=== PATIENT | male | born 1970 | race African-American/Black ===

== ENCOUNTER 2018-04-09 15:49 | Inpatient (IN) | payer OTHER ==
[~2018-04-09] VITALS: Ht 180.3 cm; Wt 106.6 kg
[2018-04-09] MEDS ORDERED: ENOXAPARIN SODIUM 30 MG/0.3 ML DISP.SYRIN SUBCUT ONE (16:00)
[2018-04-09] MEDS ORDERED: WARF7.5T23 PO (16:06)
[2018-04-09 16:44] LABS: BASOPHILS # (AUTO) 0.1 K/uL (0.0-8.0); BASOPHILS % (AUTO) 0.8 % (0.0-2.0); EOSINOPHILS # (AUTO) 0.2 K/uL (0.0-0.7); EOSINOPHILS % (AUTO) 2.1 % (0.0-7.0); HEMATOCRIT 35.9 % (36.7-47.1); HEMOGLOBIN 12.2 g/dL (12.5-16.3); LYMPHOCYTES # (AUTO) 1.4 K/uL (20.0-40.0); LYMPHOCYTES % (AUTO) 19.7 % (20.5-51.5); MEAN CORPUSCULAR HEMOGLOBIN 26.1 uug (23.8-33.4); MEAN CORPUSCULAR HGB CONC 34 g/dL (32.5-36.3); MEAN CORPUSCULAR VOLUME 76.6 fL (73.0-96.2); MONOCYTES # (AUTO) 0.7 K/uL (2.0-10.0); MONOCYTES % (AUTO) 9.7 % (0.0-11.0); NEUTROPHILS % (AUTO) 67.7 % (38.5-71.5); PLATELET COUNT (AUTO) 234 K/uL (152-348); RED BLOOD CELL COUNT(AUTO) 4.68 MIL/uL (4.06-5.63); WHITE BLOOD COUNT (AUTO) 7.4 K/uL (3.6-10.2)
[2018-04-09 16:53] LABS: CREATININE 1.1 mg/dL (0.6-1.3); POTASSIUM 3.8 mmol/L (3.5-5.1)
[2018-04-09] MEDS ORDERED: WARFARIN SODIUM 5 MG TABLET PO ONE (17:15)
--- NOTE | 2018-04-09 17:20 | NUR ---
Per pt is amitted to tele, SBAR report given to AMAURI Escobedo via telephone. Pt resting in [facility] with no s/s of acute distress noted at this time.
--- NOTE | 2018-04-09 17:37 | NUR ---
Pt trans to to tele floor, NAD noted.
[2018-04-09 18:00] VITALS: BP 127/62
--- NOTE | 2018-04-09 18:00 | NUR ---
NEW PATIENT FROM ER TO ROOM 221 VIA [place] ALERT ORTX4 COOPERATE WELL VS TAKEN STABLE NO SOB OR CHEST PAIN CALL LIGHT INSTRUCTION AND REMIND TO USE WHEN NEEDED
[2018-04-09] MEDS ORDERED: ONDANSETRON 4 MG/2 ML VIAL IV PRN (18:45)
[2018-04-09] MEDS ORDERED: ACETAMINOPHEN 325 MG TABLET PO PRN (18:45)
[2018-04-09] MEDS ORDERED: DOCUSATE SODIUM 100 MG CAPSULE PO PRN (18:45)
[2018-04-09] MEDS ORDERED: MORPHINE SULFATE 2 MG/1 ML DISP.SYRIN IV PRN (18:45)
--- NOTE | 2018-04-09 19:30 | NUR ---
RECEIVED SHIFT REPORT FROM AMAURI MCKEON. PT RESTING IN BED AT THIS TIME. C/O L C/P, NO SOB, N/V. VSS. PT REFUSES TO HAVE UPPER SIDERAILS IN PLACE. BED IN LOW AND LOCKED POSITION. CALL LIGHT WITHIN REACH. WILL MANAGE PAIN WITH ORDERED ANALGESICS.
[2018-04-09] MEDS ORDERED: HYDROCODONE/APAP 5-325MG TABLET PO PRN (19:45)
[2018-04-09 20:00] VITALS: BP 116/77
[2018-04-09] MEDS ORDERED: HYDROMORPHONE 1 MG/1 ML DISP.SYRIN IV PRN (21:00)
[2018-04-09] MEDS: HYDROMORPHONE 2 MG/1 ML DISP.SYRIN IV PRN (23:20)
--- NOTE | 2018-04-09 23:54 | NUR ---
PT REFUSES 0000 HOUR V/S CHECK. PT APPEARS TO BE IN NO APPARENT DISTRESS. BREATHING IS REGULAR AND UNLABORED. WILL CONTINUE TO MONITOR.
--- NOTE | 2018-04-10 01:35 | NUR ---
PT RESTING COMFORTABLY IN BED. NSR ON TELE MONITORING. WILL CONTINUE TO MONITOR.
[2018-04-10] MEDS: HYDROMORPHONE 2 MG/1 ML DISP.SYRIN IV PRN ×6 (03:21→23:43)
[2018-04-10 04:00] VITALS: BP 119/69
[2018-04-10 06:33] LABS: BASOPHILS % (AUTO) 0.9 % (0.0-2.0); EOSINOPHILS # (AUTO) 0.2 K/uL (0.0-0.7); EOSINOPHILS % (AUTO) 2.9 % (0.0-7.0); HEMATOCRIT 35.1 % (36.7-47.1); HEMOGLOBIN 11.8 g/dL (12.5-16.3); LYMPHOCYTES # (AUTO) 1.2 K/uL (20.0-40.0); MEAN CORPUSCULAR HEMOGLOBIN 25.9 uug (23.8-33.4); MEAN CORPUSCULAR HGB CONC 34 g/dL (32.5-36.3); MEAN CORPUSCULAR VOLUME 76.9 fL (73.0-96.2); MONOCYTES # (AUTO) 0.5 K/uL (2.0-10.0); MONOCYTES % (AUTO) 9.2 % (0.0-11.0); NEUTROPHILS # (AUTO) 3.7 K/uL (1.8-8.9); PLATELET COUNT (AUTO) 215 K/uL (152-348); RED BLOOD CELL COUNT(AUTO) 4.56 MIL/uL (4.06-5.63); WHITE BLOOD COUNT (AUTO) 5.6 K/uL (3.6-10.2)
[2018-04-10 06:44] LABS: CREATININE 1.1 mg/dL (0.6-1.3); MAGNESIUM 1.9 mg/dL (1.8-2.4)
[2018-04-10 07:01] LABS: THYROID STIMULATING HORMONE 2.002 mIU/mL (0.358-3.740)
--- NOTE | 2018-04-10 08:00 | NUR ---
AWAKE ALERT AND PLEASANT, CONTINUE CHEST PAIN OBSERVATION AND PAIN MANAGEMENT SR ON MONITOR.
[2018-04-10] MEDS: ASPIRIN 81 MG TAB.CHEW PO SCH (08:50)
[2018-04-10 11:12] VITALS: BP 137/84
--- NOTE | 2018-04-10 15:00 | NUR ---
SEEN BY HOSPITALIST WITH ORDERS, CONTINUE COUMADIN ORDERED TO MAINTAIN THERAPEUTIC LEVEL. SEE ORDER/MAR
[2018-04-10 15:14] VITALS: BP 128/73
--- NOTE | 2018-04-10 17:52 | NUR ---
RESTING COMFORTABLY IN BED , CONTINUE WITH PAIN MANAGEMENT FOR CHEST PAIN. SR ON MONITOR
[2018-04-10] MEDS ORDERED: WARFARIN SODIUM 7.5 MG TABLET PO SCH (18:00)
[2018-04-10 19:00] VITALS: BP 127/70
--- NOTE | 2018-04-10 19:29 | NUR ---
RECEIVED SHIFT REPORT FROM AMAURI MEJIAS. PT RESTING COMFORTABLY IN BED. PT C/O C/P, REQUESTING ANALGESICS. WILL ADMIN ANALGESIC ORDERED BY . PT DENIES SOB AND N/V. PT REFUSES TO HAVE BILATERAL UPPER SIDERAILS UP. PT IS OFF TELE, ON MED-SURG STATUS. WILL CONTINUE TO MONITOR.
--- NOTE | 2018-04-10 23:40 | NUR ---
PT C/O C/P 04/18. WILL MANAGE WITH PRESCRIBED ANALGESICS. PT REFUSES V/S CHECK. DOES NOT APPEAR TO BE SOB OR N/V. PT REFUSES SUPPLEMENTAL O2 TO HELP EASE C/P. WILL CONTINUE TO MONITOR.
--- NOTE | 2018-04-11 03:50 | NUR ---
PT UP AND WALKING AROUND ON UNIT FLOOR. PT SLEPT THROUGH THE NIGHT, BUT IS NOW AWAKE AND ASKING FOR PAIN MEDICATION. PT IS NOTED TO BE AGITATED IF PRN PAIN MEDICATION IS NOT ADMINISTERED RIGHT WHEN IT'S DUE.
[2018-04-11] MEDS: HYDROMORPHONE 2 MG/1 ML DISP.SYRIN IV PRN ×5 (03:58→20:02)
[2018-04-11 05:00] VITALS: BP 140/79
[2018-04-11 06:26] LABS: BASOPHILS % (AUTO) 0.4 % (0.0-2.0); EOSINOPHILS # (AUTO) 0.2 K/uL (0.0-0.7); HEMATOCRIT 36.4 % (36.7-47.1); HEMOGLOBIN 12.2 g/dL (12.5-16.3); LYMPHOCYTES # (AUTO) 1.1 K/uL (20.0-40.0); LYMPHOCYTES % (AUTO) 20.5 % (20.5-51.5); MEAN CORPUSCULAR HEMOGLOBIN 25.4 uug (23.8-33.4); MEAN CORPUSCULAR HGB CONC 34 g/dL (32.5-36.3); MEAN CORPUSCULAR VOLUME 75.9 fL (73.0-96.2); MONOCYTES # (AUTO) 0.6 K/uL (2.0-10.0); MONOCYTES % (AUTO) 10.4 % (0.0-11.0); NEUTROPHILS # (AUTO) 3.6 K/uL (1.8-8.9); NEUTROPHILS % (AUTO) 65.7 % (38.5-71.5); PLATELET COUNT (AUTO) 228 K/uL (152-348); WHITE BLOOD COUNT (AUTO) 5.4 K/uL (3.6-10.2)
[2018-04-11 06:30] LABS: MAGNESIUM 2.1 mg/dL (1.8-2.4); PHOSPHOROUS 4.3 mg/dL (2.5-4.9); POTASSIUM 4.7 mmol/L (3.5-5.1)
[2018-04-11 06:40] LABS: THYROID STIMULATING HORMONE 1.986 mIU/mL (0.358-3.740)
--- NOTE | 2018-04-11 07:00 | NUR ---
PATIENT RECEIVED ON BED, AWAKE, AAOX4. NO ACUTE DISTRESS NOTED. PORTACATH ON RIGHT UPPERCHEST INTACT AND PATENT. AMBULATORY, CONTINENT. NO COMPLAINTS OF PAIN/DISCOMFORT AT THIS TIME. COMFORT MEASURES PROVIDED. CALL LIGHT WITHIN REACH. WILL CONTINUE TO MONITOR CLOSELY.
[2018-04-11] MEDS: ASPIRIN 81 MG TAB.CHEW PO SCH (08:00)
[2018-04-11 11:46] VITALS: BP 128/72
[2018-04-11] MEDS: SOD FERRIC GLUC COMPLX/SUCROSE 125 MG in IV NORMAL SALINE 100 ML IV SCH (13:18)
[2018-04-11 15:19] VITALS: BP 120/67
[2018-04-11] MEDS ORDERED: WARFARIN SODIUM 5 MG TABLET PO ONE (18:00)
--- NOTE | 2018-04-11 18:15 | NUR ---
END OF SHIFT NOTES: PATIENT IN ROOM, ASLEEP. IN STABLE CONDITION. PORTACATH IN RIGHT UPPER CHEST STILL INTACT AND PATENT. PT 18.2 INR 1.75, COUMADIN GIVEN AT 1700 ORDERED. FERRITIN IV ADMINISTERED AT 1400 WELL TOLERATED. ALL NEEDS ATTENDED AND ANTICIPATED. CALL LIGHT WITHIN REACH. WILL CONTINUE TO MONITOR CLOSELY.
[2018-04-11 20:00] VITALS: BP 128/68
--- NOTE | 2018-04-11 22:50 | NUR ---
Received patient laying comfortably in bed. No acute distress noted. A/O x 4. Noted horton cath on the right upper chest wall. Patent and intact. Patient denies pain at the moment. Safety initiated. Call light within reach. Will closely monitor.
[2018-04-12] MEDS: HYDROMORPHONE 2 MG/1 ML DISP.SYRIN IV PRN ×6 (00:03→19:53)
[2018-04-12 04:37] VITALS: BP 113/61
--- NOTE | 2018-04-12 05:29 | NUR ---
Patient slept intermittently t/o shift. No acute distress noted. Patient reports CP 03/18, meds given, stated relief. Vicente cath on the right upper chest wall, patent and intact. Vital signs stable. Safety and comfort measures maintained t/o shift. All meds given as ordered. All needs mets.
--- NOTE | 2018-04-12 07:30 | NUR ---
on bed, resting. no distress noted.
--- NOTE | 2018-04-12 08:28 | NUR ---
med with dilaudid 1 mg ivp with relief. ambulatory. ate well for breakfast. back to bed per patient
[2018-04-12] MEDS: ASPIRIN 81 MG TAB.CHEW PO SCH (08:36)
--- NOTE | 2018-04-12 09:30 | NUR ---
resting well. will draw inr on next pain meds , agreed.
--- NOTE | 2018-04-12 11:30 | NUR ---
walking, complaint of chest discomfort, med as order.
[2018-04-12 11:44] VITALS: BP 127/73
[2018-04-12 13:00] VITALS: BP 150/90
--- NOTE | 2018-04-12 13:00 | NUR ---
discussed incident with dr wong. Addendum: 04/12/18 at 1622 by JOHAN IGLESIAS RN error in charting
[2018-04-12] MEDS: SOD FERRIC GLUC COMPLX/SUCROSE 125 MG in IV NORMAL SALINE 100 ML IV SCH (14:32)
--- NOTE | 2018-04-12 15:00 | NUR ---
resting on bed, watching tv and computer.
[2018-04-12] MEDS ORDERED: WARFARIN SODIUM 5 MG TABLET PO SCH (17:00)
[2018-04-12] MEDS ORDERED: WARFARIN SODIUM 7.5 MG TABLET PO SCH ×2 (18:00)
--- NOTE | 2018-04-12 18:37 | NUR ---
med x 3 for shift with relief. no bleeding noted
[2018-04-12 20:00] VITALS: BP 145/74
--- NOTE | 2018-04-12 20:00 | NUR ---
Received patient laying comfortably in bed. No acute distress noted. A/O x 4. Noted horton cath on the right upper chest wall. Patent and intact. Ambulatory with steady gait. Patient reports chest pain 7/10 at the moment, meds given stated relief. Safety initiated. Call light within reach. Will closely monitor.
[2018-04-12] MEDS: ENOXAPARIN SODIUM 100 MG/ML DISP.SYRIN SQ SCH (20:41)
[2018-04-13] MEDS: HYDROMORPHONE 2 MG/1 ML DISP.SYRIN IV PRN ×4 (04:08→12:12)
[2018-04-13 05:30] VITALS: BP 132/78
--- NOTE | 2018-04-13 05:39 | NUR ---
Patient slept intermittently t/o shift. No acute distress noted. Patient reports CP 03/18, meds given Q4H, stated relief. Vicente cath on the right upper chest wall, patent and intact. Vital signs stable but refused temp. Excellent appetite. No Stool for OB. Safety and comfort measures maintained t/o shift. All meds given as ordered. All needs mets.
[2018-04-13 06:33] LABS: BASOPHILS % (AUTO) 0.7 % (0.0-2.0); EOSINOPHILS # (AUTO) 0.2 K/uL (0.0-0.7); EOSINOPHILS % (AUTO) 3.1 % (0.0-7.0); HEMATOCRIT 36.6 % (36.7-47.1); HEMOGLOBIN 12.3 g/dL (12.5-16.3); LYMPHOCYTES # (AUTO) 1.2 K/uL (20.0-40.0); LYMPHOCYTES % (AUTO) 21.6 % (20.5-51.5); MEAN CORPUSCULAR HEMOGLOBIN 25.8 uug (23.8-33.4); MEAN CORPUSCULAR HGB CONC 34 g/dL (32.5-36.3); MEAN CORPUSCULAR VOLUME 76.4 fL (73.0-96.2); MONOCYTES # (AUTO) 0.8 K/uL (2.0-10.0); MONOCYTES % (AUTO) 14.1 % (0.0-11.0); NEUTROPHILS # (AUTO) 3.3 K/uL (1.8-8.9); NEUTROPHILS % (AUTO) 60.5 % (38.5-71.5); PLATELET COUNT (AUTO) 210 K/uL (152-348); RED BLOOD CELL COUNT(AUTO) 4.79 MIL/uL (4.06-5.63); WHITE BLOOD COUNT (AUTO) 5.4 K/uL (3.6-10.2)
--- NOTE | 2018-04-13 07:45 | NUR ---
received report from overnight houseperson. patient stable upon inital assessment, no s/s acute distress. VSS. will continue to monitor.
[2018-04-13 07:53] LABS: BAND % (MANUAL) 0 % (0-10); EOSINOPHILS % (MANUAL) 3 % (0-8); LYMPHOCYTES % (MANUAL) 21 % (20-40); MONOCYTES % (MANUAL) 14 % (2-10); NEUTROPHILS % (MANUAL) 62 % (42-75)
[2018-04-13] MEDS: ENOXAPARIN SODIUM 100 MG/ML DISP.SYRIN SQ SCH (08:10)
[2018-04-13] MEDS ORDERED: ENOX100D SQ (08:59)
[2018-04-13] MEDS ORDERED: WARF5TAB77 PO (08:59)
[2018-04-13] MEDS ORDERED: FERR325T28 PO (08:59)
[2018-04-13] MEDS ORDERED: ASPI81TA31 PO (08:59)
[2018-04-13] MEDS ORDERED: ASPIRIN 81 MG TAB.CHEW PO SCH (09:00)
--- NOTE | 2018-04-13 13:10 | NUR ---
patient discharged today at 1310. patient stable upon discharge. no s.s distress. VSS except blood pressure refused. morning blood pressure stable. extension on part-a-cath noted to have been removed by patient himself. all education and prescriptions given to patient. patient verbalized understanding. no pain at discharge. patient leaving with a ride from a friend to home. ID band removed.
== END 2018-04-13 13:10 | disposition home or self-care (01) | DRG 134 ==
LOC: ER 15:50 → TELE 17:21 → MED 04-10 22:03
PROVIDERS: ADMIT Internal Medicine; ATTEND Registered Nurse
DX: I26.99 Other pulmonary embolism without acute cor pulmonale (principal); D68.51 Activated protein C resistance; R07.81 Pleurodynia; I25.10 Atherosclerotic heart disease of native coronary artery without angina pectoris; E66.9 Obesity, unspecified; Z86.711 Personal history of pulmonary embolism; Z79.01 Long term (current) use of anticoagulants; Z86.718 Personal history of other venous thrombosis and embolism; Z91.041 Radiographic dye allergy status; Z95.828 Presence of other vascular implants and grafts; Z80.0 Family history of malignant neoplasm of digestive organs; Z87.892 Personal history of anaphylaxis; Z68.32 Body mass index [BMI] 32.0-32.9, adult; D50.9 Iron deficiency anemia, unspecified; I44.4 Left anterior fascicular block; Z90.49 Acquired absence of other specified parts of digestive tract; Z88.8 Allergy status to other drugs, medicaments and biological substances
CPT/HCPCS: 36415; 70030-TC; 71045; 82746; 83550; 83735; 84100; 84443; 85025; 85610; 85730; 93005; 93307; A4663; J1170; J1650; J2270; J2916; J3490; J7050